=== PATIENT | male | born 1940 | race Caucasian/White ===

== ENCOUNTER → 2017-02-02 | Outpatient (CLI) | payer MEDICARE ==
[~2017-02-02] MED LIST: AMLO10TA82 PO; AMLO5TAB2 PO; ASP325T PO; CATHETER FLUSH 10 ML SYR IV PRN; CEPH-507 PO; IBUP-1780 PO; IOHEXOL 350 MG/ML 100 ML (OMNIPAQUE 350) VIAL IV ONE; LACT1CAP8 PO; MELO-198 PO; MELO7.5T46 PO; NEBI5TAB8 PO; NFNEB10T PO; NS 100 ML (IVPB) BAG IV ONE; PANT40TA3 PO; PNT40TEC PO; ROSU10TA12 PO; TAMS0.4C2 PO; TRIA1CAP4 PO; TRIA1TAB3 PO
[2017-02-02 12:02] LABS: BLOOD UREA NITROGEN 24 MG/DL (7-18); BUN/CREATININE RATIO 21; CREATININE SERUM 1.14 MG/DL (0.60-1.30); GFR ESTIMATED > 60
--- NOTE | 2017-02-02 14:44 | Diagnostic Imaging Report ---
INDICATION: Evaluate IVC filter. COMPARISON: 01/09/2011. TECHNIQUE: Post contrast CTA of the abdomen and pelvis was performed. FINDINGS: Included views of the lung bases are unremarkable. CTA abdomen: There is diffuse calcified aortic and arterial atherosclerosis. There is no evidence of dissection, focal stenosis, or aneurysm. There are bulky calcifications at the origins of the celiac trunk, superior mesenteric artery, and bilateral renal arteries. Evaluation for focal hemodynamically significant stenosis is suboptimal given their small caliber. There is however normal distal downstream opacification. Indwelling IVC filter is identified and is in stable appropriate position. Evaluation for thrombus around the indwelling IVC filter is suboptimal given its venous location, but no definite intraluminal filling defects are seen. Postsurgical changes of previous partial colectomy are noted. Small bowel loops are nondistended. Multiple benign-appearing right renal cysts are noted. Multiple other subcentimeter rounded hypoenhancing foci are also noted bilaterally. These may represent cysts as well, but are too small to adequately characterize on this exam. The spleen, adrenal glands, pancreas, and liver have a normal CT appearance. There is no loculated fluid collection, free fluid, or free air within the abdomen. No abnormal mesenteric or retroperitoneal adenopathy is seen. Bony structures show no acute abnormalities. CTA pelvis: There is scattered calcified arteriosclerosis. There is no evidence of definite focal hemodynamically significant stenosis within the pelvis nor within the included portions of the bilateral superficial femoral arteries. Urinary bladder is grossly unremarkable. There is no loculated fluid collection, free fluid, or free air within the pelvis. No abnormal lymph nodes are seen. Bony structures show no acute abnormalities. 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 IMPRESSION: 1. Indwelling IVC filter is identified and appears to be in appropriate position. Evaluation for thrombus within the IVC is suboptimal given its venous location, but no definite intraluminal filling defect is seen. If further evaluation is desired, catheter-directed inferior venacavogram is recommended. 2. Moderate calcified aortic and arterial atherosclerosis without evidence of aortic stenosis, aneurysm, or dissection. 3. Bulky calcifications at the origins of the celiac trunk, superior mesenteric artery, and bilateral renal arteries. Again, evaluation for focal hemodynamically significant stenosis is suboptimal given their small caliber. 4. Multiple benign-appearing right renal cysts. Additional subcentimeter hypoenhancing rounded renal foci are also noted bilaterally. These may represent cysts as well, but are too small to adequately characterize based on this exam. Dictated by: Dictated on workstation # [id number]
== END ==
LOC: RAD 11:32
PROVIDERS: ATTEND Family Medicine
DX: Z09 Encounter for follow-up examination after completed treatment for conditions other than malignant neoplasm (principal); I70.0 Atherosclerosis of aorta; N28.1 Cyst of kidney, acquired
CPT/HCPCS: 36415; 74174; 82565; 84520

== ENCOUNTER → 2017-03-23 | Outpatient (CLI) | payer MEDICARE ==
[~2017-03-23] MED LIST changes: -CATHETER FLUSH 10 ML SYR IV PRN; -IOHEXOL 350 MG/ML 100 ML (OMNIPAQUE 350) VIAL IV ONE; -NS 100 ML (IVPB) BAG IV ONE
[2017-03-23 08:42] LABS: MEAN PLATELET VOLUME 9.9 FL (7.4-10.4); RED BLOOD COUNT 4.65 10^6/uL (4.35-5.85); WHITE BLOOD COUNT 6.6 10^3/uL (4.3-11.0)
[2017-03-23 09:00] LABS: ANION GAP 8 MMOL/L (5-14); BLOOD UREA NITROGEN 26 MG/DL (7-18); BUN/CREATININE RATIO 25; CALCIUM 9.7 MG/DL (8.5-10.1); CARBON DIOXIDE 23 MMOL/L (21-32); CHLORIDE 109 MMOL/L (98-107); CREATININE SERUM 1.04 MG/DL (0.60-1.30); GFR ESTIMATED > 60; GLUCOSE 94 MG/DL (70-105); SODIUM 140 MMOL/L (135-145)
--- NOTE | 2017-03-23 14:33 | Diagnostic Imaging Report ---
PA and lateral views of the chest. INDICATION: Hyperlipidemia. FINDINGS: The heart size is normal. Mild density adjacent to the left cardiac border is probably a prominent pericardial fat pad. No definite pulmonary infiltrate. No effusion or pneumothorax. The lateral view demonstrates flattening of the diaphragms compatible with pulmonary hyperinflation likely related to COPD. 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 IMPRESSION: Hyperinflated clear lungs. Dictated by: Dictated on workstation # [id number]
== END ==
LOC: RAD 08:21
PROVIDERS: ATTEND Internal Medicine Cardiovascular Disease
DX: I35.1 Nonrheumatic aortic (valve) insufficiency (principal); Z95.828 Presence of other vascular implants and grafts; E78.5 Hyperlipidemia, unspecified
CPT/HCPCS: 36415; 71020; 80048; 83880; 85027

== ENCOUNTER → 2018-08-12 | Outpatient (CLI) | payer MEDICARE ==
[~2018-08-12] MED LIST changes: -AMLO5TAB2 PO; +AMLO5TAB7 PO
== END ==
LOC: CARD 12:14
PROVIDERS: ATTEND Internal Medicine Cardiovascular Disease
DX: I35.0 Nonrheumatic aortic (valve) stenosis (principal); R07.89 Other chest pain; I10 Essential (primary) hypertension; R06.02 Shortness of breath
CPT/HCPCS: 93306

== ENCOUNTER → 2018-08-20 | Outpatient (CLI) | payer MEDICARE ==
[~2018-08-20] VITALS: Ht 170.2 cm; Wt 81.2 kg
[~2018-08-20] MED LIST changes: +REGADENOSON 0.4 MG/5 ML SYR (LEXISCAN) IV ONE
[2018-08-20] MEDS: CATHETER FLUSH 10 ML SYR IV PRN ×2 (11:17→13:08)
[2018-08-20 13:06] VITALS: BP 122/54
--- NOTE | 2018-08-20 20:28 | STRESS TEST ---
DATE OF SERVICE: 08/20/2018 RESTING AND POST REGADENOSON TECHNETIUM-99M TETROFOSMIN SPECT CT IMAGING ORDERING PHYSICIAN: Dr. Ruelas. OTHER PHYSICIAN: Dr. Kelley. CLINICAL DIAGNOSIS: Aortic stenosis, chest discomfort, hypertension, shortness of breath. Baseline images were carried out after injection of 10.77 mCi of technetium-99m Tetrofosmin. This was followed by 0.4 mg regadenoson and 30.6 mCi of technetium-99m Tetrofosmin for stress imaging. The electrocardiogram showed sinus rhythm with incomplete left bundle branch block and ST and T-wave abnormality at baseline. This did not change significantly with the regadenoson infusion. The patient tolerated the procedure well. He did note some shortness of breath with regadenoson infusion, which resolved in a few minutes. Review of images at rest and following stress indicates a dilated left ventricle. The study is technically difficult because of considerable gut activity. There appears to be a fixed inferoapical perfusion defect. There appears to be global hypokinesis of the left ventricle, somewhat more marked at the inferoapical wall. Left ventricular ejection fraction is calculated to be 35%. Left ventricular end diastolic volume is 209 mL. TID is absent (0.97). CONCLUSIONS: 1. Technically difficult study due to significant gut activity during image acquisition. 2. Cardiomegaly. 3. This study suggests an inferoapical myocardial infarction without significant ischemia. 4. Impairment of global left ventricular systolic function with a calculated ejection fraction of 35%. 5. There appears to be some degree of global hypokinesis, more marked at the inferoapical wall. Job ID: [id number] DocumentID: [id number] Dictated Date: 08/20/2018 17:57:36 Peanut Farmer Date: 08/20/2018 20:28:04 Dictated By: JOEY RUELAS MD, MA, FACP, FACC,
== END ==
LOC: CARD 10:58
PROVIDERS: ATTEND Internal Medicine Cardiovascular Disease
DX: I35.0 Nonrheumatic aortic (valve) stenosis (principal); R07.9 Chest pain, unspecified; I11.9 Hypertensive heart disease without heart failure; R06.02 Shortness of breath
CPT/HCPCS: 78452; 93017

== ENCOUNTER 2018-09-10 06:50 | Day surgery (SDC) | payer MEDICARE ==
[~2018-09-10] VITALS: Ht 170.2 cm; Wt 81.6 kg
[2018-09-10] VITALS (9 sets, daily range): BP systolic 100–119; BP diastolic 49–86
[~2018-09-10 06:50] MED LIST changes: -REGADENOSON 0.4 MG/5 ML SYR (LEXISCAN) IV ONE
[2018-09-10] MEDS ORDERED: LIDOCAINE 1% INJ 20 ML 20 ML VIAL ONE ×2 (06:55→08:30)
[2018-09-10] MEDS ORDERED: HEParin (CATH LAB) 2,000 ML IV ONE (06:55)
[2018-09-10] MEDS ORDERED: NS IV 1000 ML 1,000 ML IV SCH ×2 (07:00→09:16)
[2018-09-10 07:17] LABS: HEMOGLOBIN 11.3 G/DL (13.3-17.7); MEAN PLATELET VOLUME 9.7 FL (7.4-10.4); RED BLOOD COUNT 4.37 10^6/uL (4.35-5.85); RED CELL DISTRIBUTION WIDTH 15.7 % (10.0-14.5); WHITE BLOOD COUNT 5.7 10^3/uL (4.3-11.0)
[2018-09-10] MEDS ORDERED: FURO-124 PO (07:20)
[2018-09-10] MEDS ORDERED: POTA-51 PO (07:20)
[2018-09-10 07:28] LABS: INR 1.2 (0.8-1.4)
[2018-09-10 07:36] LABS: ALANINE AMINOTRANSFERASE 12 U/L (0-55); ALKALINE PHOSPHATASE 58 U/L (40-136); BILIRUBIN,TOTAL 1.2 MG/DL (0.1-1.0); BUN/CREATININE RATIO 18; CALCIUM 9.5 MG/DL (8.5-10.1); CARBON DIOXIDE 20 MMOL/L (21-32); CHLORIDE 111 MMOL/L (98-107); CHOLESTEROL 147 MG/DL (< 200); CREATININE SERUM 1.17 MG/DL (0.60-1.30); GFR ESTIMATED > 60; GLUCOSE 102 MG/DL (70-105); HDL CHOLESTEROL 44 MG/DL (40-60); POTASSIUM 3.2 MMOL/L (3.6-5.0); SODIUM 143 MMOL/L (135-145); TOTAL PROTEIN 6.8 GM/DL (6.4-8.2); TRIGLYCERIDES 94 MG/DL (<150); VLDL CHOLESTEROL 19 MG/DL (5-40)
[2018-09-10] MEDS ORDERED: fentaNYL INJECTION 100 MCG/2 ML AMP ONE (07:42)
[2018-09-10] MEDS ORDERED: MIDAZOLAM 5 MG/5 ML (VERSED) VIAL ONE (07:42)
--- NOTE | 2018-09-10 09:14 | Cardiac Procedure Note-CS/ASA ---
Pre-Procedure Note Pre-Op Procedure Note H&P Reviewed The H&P was reviewed, patient examined and no changes noted. Date H&P Reviewed: Sep 10, 2018 Time H&P Reviewed: 08:20 Conscious Sedation Pre-Proced Time 08:20 ASA Score 3 For ASA 3 and 4: Consider anesthesia and medical clearance. Also, for patients with a history of failed moderate sedation consider anesthesia. Airway Lungs Heart ASA score ASA 1: a normal healthy patient ASA 2: a patient with a mild systemic disease (mid diabetes, controlled hypertension, obesity ASA 3: a patient with a severe systemic disease that limits activity (angina , COPD, prior Myocardial infarction) ASA 4: a patient with an incapacitating disease that is a constant threat to life (CHF, renal failure) ASA 5: a moribund patient not expected to survive 24 hrs. (ruptured aneurysm) ASA 6: a declared brain patient whose organs are being harvested. For emergent operations, add the letter E after the classification Mallampati Classification Grade 2 Sedation Plan Analgesia, Amnesia, Plan communicated to team members, Discussed options with patient/fam, Discussed risks with patient/fam The patient is an appropriate candidate to undergo the planned procedure, sedation, and anesthesia. The patient immediately re-assessed prior to indication. JOEY SANDERS MD FACP FAC CCDS Sep 10, 2018 09:14
[2018-09-10] MEDS ORDERED: PATIENT MAY USE OWN MEDS, ALL PO SCH (09:30)
--- NOTE | 2018-09-10 10:14 | CARDIAC CATHETERIZATION ---
DATE OF SERVICE: 09/10/2018 The patient is a 77-year-old man with severe aortic stenosis who has had progressive shortness of breath. Ejection fraction on echocardiogram was 60 to 65% but was calculated to be approximately 35% on a myocardial perfusion imaging study, which also indicated inferoapical myocardial infarction with a small amount of tati-infarct ischemia. Cardiac catheterization was carried out today after having obtained informed consent. PROCEDURE: He was brought to the cardiac catheterization laboratory in a fasting state. Right groin was prepared and draped in the usual sterile fashion. Lidocaine 1% was used for local anesthesia. Modified Seldinger technique was used to advance a 6-[place] sheath in the right femoral artery and a 7-[place] sheath in the right femoral vein. The initial plan was to carry out right heart catheterization through the right groin approach but, after insertion of the sheath, on fluoroscopy, we noted that the patient had inferior vena cava filter in place. Therefore, we did not make any attempt to advance any wires or catheters across this inferior vena cava filter and abandon the plan to carry out right heart catheterization through this approach. We used the arterial sheath to carry out coronary angiography. We used a 6-[place] JL3.5 catheter for right coronary angiography and 5-[place] JR4 catheter for right coronary angiography. We tried to advance a pigtail catheter across the aortic valve. We made multiple attempts, but we were not successful. We did not attempt it extensively because the patient does have considerable atherosclerosis of the ascending aorta and the aortic arch and because we have reliable evaluation of the valvular status through recent echocardiography. We did perform aortic root angiography with the pigtail at the aortic root. Following removal of the catheters, angiography of the right femoral artery was carried out through the sheath and we used Mynx to achieve hemostasis following sheath removal. Manual pressure was used to achieve hemostasis following venous sheath removal. He tolerated the procedure well. CORONARY ANGIOGRAPHY: There is marked coronary and ascending aortic calcification. Left main coronary artery does not exhibit significant obstructive disease. Left anterior descending and left circumflex arteries have diffuse moderate disease. There are left to right collaterals. The right coronary artery is occluded in its proximal portion with very faint antegrade flow. AORTIC ROOT ANGIOGRAPHY: Aortic root angiography indicates moderate aortic regurgitation. The motion of the aortic valve leaflets is significantly impaired. There is marked calcification of the aortic valve leaflets and of the aortic root and the ascending aorta. CONCLUSIONS: 1. Coronary artery disease consisting of proximal occlusion of the right coronary artery with [id number] collaterals and with moderate diffuse disease of the left coronary system. 2. Moderate aortic regurgitation. 3. Severe aortic stenosis and moderate mitral regurgitation (based on recent echocardiography). Aortic valve was not crossed today. DISCUSSION AND RECOMMENDATIONS: Based on his valvular heart disease and coronary artery disease, aortic valve replacement surgery with possible bypass to the distal right coronary appears to be the best treatment option. This was reviewed and discussed with him. At the time of surgery, mitral valve repair may also need to be undertaken. All of these issues were discussed. He has not agreed yet. He wishes to continue conservative approach and I will follow up closely at our office and let us know of his final decision. Job ID: [id number] DocumentID: [id number] Dictated Date: 09/10/2018 09:47:34 Mobile Lounge Driver Or Operator Date: 09/10/2018 10:14:01 Dictated By: JOEY SANDERS MD, MA, FACP, FACC, MTDD
--- NOTE | 2018-09-10 11:10 | Discharge Inst-Post CATH ---
Discharge Inst-CATH Post Cardiac Cath D/C Inst Follow Up/Plan F/u with Dr Ruelas in one week CARDIAC CATH DISCHARGE INSTRUCTIONS *Hold Metformin for 48 hours post heart cath. ACTIVITY * Go Home directly and rest. * Limit activity of the leg (or wrist if it was used) for 7 days including aerobics, swimming, jogging, bicycling, etc. * Restrict stair-climbing for 7 days if possible, if not, climb up with your non -cath leg, then bring together on the same step. * Avoid lifting, pushing, pulling or excessive movement of the affected extremity for 7 days. * Customary sexual activity may be resumed after 2 days-use caution not to use a position that strains or causes pain to the affected extremity. * No driving for 24 hours. * NO SMOKING. * Avoid straining for bowel movements for 7 days. * Gentle walking on level ground is allowed. * Returning to work will depend on the type of procedure and the results. Your doctor will discuss this with you. CALL YOUR DOCTOR FOR ANY OF THE FOLLOWING: *If bleeding from the puncture site occurs- Apply gentle pressure to site with clean cloth and call your doctor or EMS. * If a knot or lump forms under the skin, increases in size, or causes pain. * If bruising appears to be worsening or moving further down your leg instead of disappearing. * Temperature above 101 F. CARE OF YOUR GROIN INCISION; * Bruising or purple discoloration of the skin near the puncture site is common. * You may shower only, no bathtub bathing for 5 days. Be careful to avoid slipping as your leg may feel stiff. * If a closure device was used on your femoral artery, please see the attached guide regarding care of the device and your leg. * Leave the dressing on, until removed by office staff. CARE OF YOUR WRIST INCISION; * Bruising or purple discoloration of the skin near the puncture site is common. * You may shower. * DO NOT submerge wrist. * Leave dressing on, until removed by office staff.. JOEY RUELAS MD [facility] CCDS Sep 10, 2018 11:10
--- NOTE | 2018-09-10 11:11 | Discharge Inst-Cardiology ---
Discharge Inst-Cardiac Discharge Medications Continued Medications: Aspirin (Aspirin 325 Mg Tab) 325 Mg Tab 325 MG PO DAILY Furosemide (Lasix) 40 Mg Tablet 40 MG PO DAILY, TAB Nebivolol HCl (Bystolic) 5 Mg Tablet 5 MG PO DAILY Pantoprazole Sodium (Pantoprazole Sodium) 40 Mg Tablet.dr 40 MG PO DAILY Potassium Chloride (Potassium Chloride) 20 Meq Tablet.er 40 MEQ PO DAILY, TAB Rosuvastatin Calcium (Crestor) 10 Mg Tablet 10 MG PO HS Tamsulosin HCl (Tamsulosin HCl) 0.4 Mg Cap.er.24h 0.4 MG PO HS JOEY SANDERS MD FACP FACC CCDS Sep 10, 2018 11:11
[2018-09-10] MEDS ORDERED: KCL 20 MEQ TAB (K-DUR) PO NR (11:15)
== END 2018-09-10 13:30 | disposition home or self-care (01) ==
LOC: CATH 06:50 → SDC 09:38 → CATH 13:30
PROVIDERS: ATTEND Internal Medicine Cardiovascular Disease
DX: I25.10 Atherosclerotic heart disease of native coronary artery without angina pectoris (principal); I08.0 Rheumatic disorders of both mitral and aortic valves; I10 Essential (primary) hypertension; E78.5 Hyperlipidemia, unspecified; R07.89 Other chest pain; Z79.82 Long term (current) use of aspirin; Z79.899 Other long term (current) drug therapy; Z86.718 Personal history of other venous thrombosis and embolism
CPT/HCPCS: 36415; 36430; 80053; 80061; 85027; 85610; 85730; 87081; 93454